=== PATIENT | male | born 1935 | race Caucasian/White ===

== ENCOUNTER 2020-06-23 10:45 | Day surgery (SDC) | payer MEDICARE ==
[~2020-06-23] VITALS: Ht 180.3 cm; Wt 95.8 kg
[2020-06-23] VITALS (11 sets, daily range): BP systolic 94–134; BP diastolic 56–74; PULSE 60–75; TEMP 97.9
[~2020-06-23 10:45] MED LIST: ASPIRIN 81M81 MG/TA2 PO; LIPITOR 40MG TA40 MG PO; NITROSTAT0.4 MG/TAB SL; PLAVIX 75MG TAB75 MG PO; TOPROL XL 25MG25 MG PO; VASOTEC 2.2.5 MG/TAB PO
[2020-06-23 12:25] LABS: HEMOGLOBIN 10.5 g/dl (13.5-18.0); MEAN CELL VOLUME 87 fl (80.0-100.0); MEAN CORPUSCULAR HEMOGLOBIN 27 pg (27.0-31.0); MEAN CORPUSCULAR HGB CONC 31 g/dl (33.0-37.0); MEAN PLATELET VOLUME 11.5 fl (7.4-10.4); PLATELET COUNT 174 K/mm3 (130-400)
[2020-06-23 12:34] LABS: CALCIUM 8.7 mg/dL (8.4-10.2); CREATININE, serum 1.19 (0.66-1.25); POTASSIUM 4.6 mmol/L (3.4-5.0)
[2020-06-23 12:44] LABS: INR 1.3 (0.8-3.0); PROTHROMBIN TIME 13.9 SECONDS (9.7-12.8)
[2020-06-23 12:47] LABS: PARTIAL THROMBOPLASTIN TIME 32.5 SECONDS (26.0-37.0)
--- NOTE | 2020-06-23 14:57 | NUR ---
SEE MERGE DOCUMENTATION FOR MEDICATION ADMINISTRATION TIMES AND INTRA/POST PROCEDURE SEDATION ASSESSMENTS. RIGHT HAND BARBEAU TEST POSITIVE.
--- NOTE | 2020-06-23 17:56 | NUR ---
Attempted to release air from right radial band,# ml removed,3 ml reinstilled back into band.
--- NOTE | 2020-06-23 19:38 | NUR ---
Discharge instructions given to pt.pt verbalizes understanding.INT removed,catheter tip intact.Right wrist dressing observed clean,dry,intact.
--- NOTE | 2020-06-23 19:47 | NUR ---
Pt escorted out via wheelchair by this nurse.
== END 2020-06-23 19:48 | disposition home or self-care (01) ==
LOC: COL.CAR 10:45
PROVIDERS: Internal Medicine Cardiovascular Disease
DX: I25.110 Atherosclerotic heart disease of native coronary artery with unstable angina pectoris (principal); I10 Essential (primary) hypertension; I21.4 Non-ST elevation (NSTEMI) myocardial infarction; E78.5 Hyperlipidemia, unspecified; I99.8 Other disorder of circulatory system; R94.39 Abnormal result of other cardiovascular function study; Z20.822 Contact with and (suspected) exposure to COVID-19
CPT/HCPCS: C1769; C1887; J0153; J0583; J1644; J2250; J3010; Q9967